=== PATIENT | male | born 1980 | race Caucasian/White ===

== ENCOUNTER 2017-08-09 08:01 | Outpatient (CLI) | payer BC ==
--- NOTE | 2017-08-09 11:07 | MRI ---
MRI LUMBAR SPINE WITHOUT IV CONTRAST: HISTORY: A 36-year-old male with low back pain and right leg pain, down to the right knee, for two months. TECHNIQUE: Multiplanar, multisequence MRI examination of the lumbar spine is performed. FINDINGS: There is some evidence for Schmorl's nodes at L1-L2 and at L2-L3, with some disk desiccation changes and some disk space narrowing, without evidence for focal disk osteophytosis or canal or foraminal st enosis. L3-L4: No central canal or foraminal stenosis. L4-L5: Very mild ventral lateral recess narrowing without significant stenosis. L5-S1: Broad-based central protrusion with some moderate thecal sac compression and mild to moderate central canal and bilateral recess stenosis and bilateral foraminal stenosis. There incidental note of bilateral os acetabulae involving both right and left acetabular regions. On the sagittal T2 sequence, the space between the posterior rectum and S4 measures approximately 0.8 c m, and the space between the posterior rectum and the sacrococcygeal junction region measures approxi mately 0.3 cm. There are some dilated veins in the presacral space. IMPRESSION: Broad-based protrusion changes at L5-S1 with some moderate canal, lateral recess, and foraminal steno sis. Incidental bilateral os acetabulae. Some Schmorl's nodes, disk desiccation changes, and disk s pace narrowing at L1-L2 and L2-L3, without significant canal or foraminal stenosis. POS: LM
== END 2017-08-09 08:02 | disposition home or self-care (01) ==
LOC: SCSMRI 08:01
PROVIDERS: ATTEND Orthopaedic Surgery
DX: M54.16 Radiculopathy, lumbar region (principal); M54.5 Low back pain; M48.07 Spinal stenosis, lumbosacral region; M51.46 Schmorl's nodes, lumbar region; M24.7 Protrusio acetabuli
CPT/HCPCS: 72148

== ENCOUNTER 2017-09-13 16:14 | Outpatient (CLI) | payer OTHER ==
[2017-09-13 17:05] LABS: Hemoglobin 15.2 g/dL (14.0-18.0); Mean Corpuscular HGB CONC 34.4 g/dL (32.0-36.0); Mean Corpuscular Hemoglobin 30.1 pg (27.0-31.0); Mean Corpuscular Volume 87.5 fl (80.0-94.0); Platelet Count 290 thou/uL (130-400); RBC Distribution Width 12.1 % (11.5-14.5); Red Blood Cell (RBC) Count 5.05 mill/uL (4.70-6.10); White Blood Cell (WBC) Count 13.8 thou/uL (4.8-10.8)
[2017-09-13 17:13] LABS: INR-International Normal Ratio 1.1; PTT 27.6 SEC (22.9-36.1); Prothrombin Time 14.1 SEC (12.0-14.7)
[2017-09-13 17:21] LABS: Anion Gap 12 mmol/L (10-20); BUN (Urea Nitrogen) 13 mg/dL (8.9-20.6); Calc. Creatinine Clearance 0 mL/min (70-130); Calcium 9.8 mg/dL (7.8-10.44); Carbon Dioxide 27 mmol/L (22-29); Chloride 104 mmol/L (98-107); Estimated GFR-MDRD Greater than 90; Glucose 80 mg/dL (70-105); Potassium 4.3 mmol/L (3.5-5.1); Sodium 139 mmol/L (136-145)
== END 2017-09-13 16:15 | disposition home or self-care (01) ==
LOC: LABBT 16:14
PROVIDERS: ATTEND Orthopaedic Surgery
DX: Z01.818 Encounter for other preprocedural examination (principal); M54.17 Radiculopathy, lumbosacral region; M54.5 Low back pain
CPT/HCPCS: 80048; 85027; 85610; 85730; 86850; 86900; 86901

== ENCOUNTER 2017-09-16 10:34 | Observation (INO) | payer OTHER ==
[2017-09-16] MEDS ORDERED: CEFAZOLIN/Water 2 GM/20 ML SYRINGE ONE (11:07)
[2017-09-16] MEDS ORDERED: Famotidine/PF 20 mg/2ml Vial ONE (11:08)
[2017-09-16] MEDS ORDERED: Midazolam HCl 2 mg/2 ml Vial ONE (12:27)
[2017-09-16] MEDS ORDERED: Ketamine 50 MG/ML VIAL ONE (12:43)
[2017-09-16] MEDS ORDERED: Propofol 1,000 MG/100 ML VIAL IV ONE (12:43)
[2017-09-16] MEDS ORDERED: Sodium Chloride 0.9% 10 ML ONE (12:54)
[2017-09-16] MEDS ORDERED: Thrombin 5000 UNITS/5 ML VIAL ONE (12:54)
[2017-09-16] MEDS ORDERED: Neomycin-Polymyxin 1 ML AMP ONE (12:54)
[2017-09-16] MEDS ORDERED: Bupivacaine PF 0.5% 30 ML VIAL ONE (12:54)
[2017-09-16] MEDS ORDERED: Fentanyl 100 MCG/2 ML VIAL ONE ×2 (13:00→13:50)
[2017-09-16] MEDS ORDERED: Lidocaine 1% w/Epinephrine 1:200K 30 ML VIAL ONE (14:10)
[2017-09-16] MEDS ORDERED: Propofol 500 MG/50 ML VIAL ONE ×2 (14:43→15:37)
[2017-09-16] MEDS ORDERED: HYDROmorphone 0.5 MG/0.5 ML SYRINGE ONE ×3 (15:14→16:06)
[2017-09-16] MEDS ORDERED: Dexamethasone 20 MG/5 ML VIAL ONE (15:29)
[2017-09-16] MEDS ORDERED: Ketorolac Tromethamine 30 MG/ML VIAL ONE (15:29)
[2017-09-16] MEDS ORDERED: Succinylcholine Chloride 20 MG/ML 10 ml SYRINGE FS ONE (15:29)
[2017-09-16] MEDS ORDERED: Lidocaine 1% PF 5 ML VIAL ONE (15:29)
[2017-09-16] MEDS ORDERED: Propofol 200 MG/20 ML VIAL ONE (15:29)
[2017-09-16] MEDS ORDERED: Ondansetron HCl/PF 4 MG/2 ML Vial ONE ×2 (15:29→20:52)
[2017-09-16] MEDS ORDERED: HYDROmorphone 2 MG/ML VIAL SLOW IVP PRN (19:25)
[2017-09-16] MEDS ORDERED: Ondansetron HCl/PF 4 MG/2 ML Vial IVP PRN (19:25)
[2017-09-16] MEDS ORDERED: Promethazine HCl 25 MG/ML VIAL IM PRN ×2 (19:25→19:27)
[2017-09-16] MEDS ORDERED: Promethazine HCl 25 MG/ML VIAL SLOW IVP PRN (19:25)
[2017-09-16] MEDS ORDERED: Ondansetron HCl/PF 4 MG/2 ML Vial IV PRN (19:27)
[2017-09-16] MEDS ORDERED: Morphine 4 MG/ML Carpuject IVP PRN (19:27)
[2017-09-16] MEDS ORDERED: PHARMACY TO RENALLY ADJUST ABX FS SCH (19:30)
[2017-09-16] MEDS ORDERED: TETANUS AND DIPHTHERIA TOX/PF 0.5 ML DISP.SYRIN IM SCH (19:30)
[2017-09-16] MEDS ORDERED: CEFAZOLIN/Water 2 GM/20 ML SYRINGE SLOW IVP SCH ×2 (20:00→22:15)
[2017-09-16] MEDS ORDERED: Promethazine HCl 25 MG/ML VIAL ONE (21:05)
[2017-09-16] MEDS ORDERED: diphenhydrAMINE 50 MG CAP PO PRN (22:09)
[2017-09-16] MEDS ORDERED: HYDROcodone/Acetaminophen 10/325 mg Tablet PO PRN (22:10)
[2017-09-16] MEDS ORDERED: Acetaminophen 325 MG TAB PO PRN (22:11)
[2017-09-16 22:31] VITALS: BMI 28.7
[2017-09-16] MEDS ORDERED: Morphine 5 MG/ML SYRINGE IVP PRN (23:32)
[2017-09-17] MEDS: traMADol HCl 50 MG TAB PO PRN (03:18)
[2017-09-17] MEDS: CEFAZOLIN/Water 2 GM/20 ML SYRINGE SLOW IVP SCH ×2 (06:08→15:21)
[2017-09-17] MEDS: HYDROcodone/Acetaminophen 10/325 mg Tablet PO PRN ×3 (08:38→21:45)
[2017-09-17] MEDS ORDERED: FLU VACC QS2017-18 36 mo. & older 0.5 ML SYRINGE IM ONE (09:00)
[2017-09-17] MEDS: Cyclobenzaprine 10 MG TAB PO PRN ×2 (15:20→23:45)
--- NOTE | 2017-09-17 21:54 | PRG ---
POSTOPERATIVE DAY #1 NOTE: 09/17/2017 Mr. Kelley had surgery yesterday evening. It was an L5-S1 decompression bilaterally followed by L5- S1 fusion. After the surgery, he had a lot of muscle spasm. Today, he was able to stand up to urina te. Otherwise, he has been mostly in the bed. He has had a lot of muscle spasm. There has been uri e attempts at using his lumbar corset, but he still has too much muscle spasm. I checked his dressing. It was clean and dry. He has good strength in ankle and toe dorsiflexion an d plantar flexion. ASSESSMENT AND PLAN: Mr. Kelley has a lot of muscle spasm from his surgery yesterday. I will add F lexeril 10 mg p.o. t.i.d. to his regimen and I have also requested a physical therapy consultation. I will extend his status until tomorrow because of pain management and requiring pain medication. Ho pefully, he will be able to be discharged tomorrow.
[2017-09-18] MEDS: Cyclobenzaprine 10 MG TAB PO PRN ×2 (12:19→20:51)
[2017-09-18] MEDS: HYDROcodone/Acetaminophen 10/325 mg Tablet PO PRN (12:55)
[2017-09-18] MEDS: Acetaminophen/Codeine 30-300mg Tablet PO PRN (18:53)
--- NOTE | 2017-09-19 01:48 | DIS ---
POSTOPERATIVE DAY #2 VISIT NOTE AND DISCHARGE SUMMARY I saw Mr. Kelley today. He is able to get out of bed today. He walked down the lawler with assistanc e. He is using oral pain medications and muscle relaxers. The muscle relaxers seem to have helped a lot. He has full strength in lower extremities. He has no sensory changes. His incisions are nice and clean. Mr. Kelley will follow up with me in the office. His prescriptions have already been called in and his postop visit has already been scheduled. He is to be discharged with a walker and arrangements h ave already been made. Wound care instructions have already been done in the office.
[2017-09-19] MEDS: traMADol HCl 50 MG TAB PO PRN (02:11)
[2017-09-19] MEDS: Acetaminophen/Codeine 30-300mg Tablet PO PRN ×2 (04:32→10:19)
--- NOTE | 2017-09-19 05:56 | DIS ---
CHIEF COMPLAINT: Severe low back pain and leg pain. HISTORY OF PRESENT ILLNESS: Mr. Kelley is a 36-year-old gentleman who has been having low back pain and leg pain for years with epidural steroid injections given numerous times. He was found to have both foraminal stenosis and lateral recess stenosis. He had back pain and leg pain bilaterally. Mr. Kelley underwent an L5-S1 decompression bilaterally in the lateral recesses as well as separate incisions for minimally invasive pedicle screw fixation at L5-S1. He did very well with surgery and then was transferred to the recovery room and then the floor. He had some pain issues for which he t ook IV pain medications and muscle relaxers. On postop day #1, he was feeling a little bit better. Postop day #2, today, he was feeling a lot better. He feels that he will be ready for discharge in t he morning. He has already been set up for his initial postop visit, prescriptions have already been called in, and his walker has already been arranged. I will see him in the office next week.
[2017-09-19 08:37] VITALS: TEMP 98
[2017-09-19] MEDS: Cyclobenzaprine 10 MG TAB PO PRN (08:38)
[2017-09-19 09:58] VITALS: BP 117/69
--- NOTE | 2017-10-10 20:27 | DIS ---
CHIEF COMPLAINT: Severe low back pain and radiating bilateral leg pain. HISTORY OF PRESENT ILLNESS: Mr. Kelley is a gentleman who has had significant low back pain and rad iating leg pain with significant lateral recess stenosis, as well as far lateral stenosis. This was not able to be decompressed alone, but needed stabilization since the foraminal stenosis was a signif icant part of the problem. HOSPITAL COURSE: Mr. Kelley underwent an L5-S1 bilateral microsurgical decompression in the midline , as well as posterior spinal fusion with stabilization at L5-S1. He did well with the surgery and w as transferred to the recovery room and then to the regular floor. After the surgery, he had some pa in issues and was kept in the hospital for IV pain medication for the first 48 hours. He was then de emed to be stable on oral pain medications and then finally discharged. He was discharged in an ambu latory status and was taking oral pain medications. He was neurologically intact throughout his enti re convalescence. I will see Mr. Kelley back in the office on the bases consistent with his surgery.
== END 2017-09-19 11:15 | disposition home or self-care (01) ==
LOC: SDC 10:34 → OBSVTOIN 19:27 → SURG A 19:27 → INTOOBSV 19:27
PROVIDERS: ADMIT Orthopaedic Surgery; ATTEND Orthopaedic Surgery
PROC: 0SG3071 Fusion of Lumbosacral Joint with Autologous Tissue Substitute, Posterior Approach, Posterior Column, Open Approach (ICD-10-PCS; principal; 2017-09-19)
DX: M48.07 Spinal stenosis, lumbosacral region (principal); M54.17 Radiculopathy, lumbosacral region; E66.9 Obesity, unspecified; Z68.28 Body mass index [BMI] 28.0-28.9, adult; Z88.0 Allergy status to penicillin; Z98.818 Other dental procedure status
CPT/HCPCS: 76001; 80048; 85027; 85610; 85730; 86850; 86900; 86901; 96374; 96375; 96376; J2270; A4216; C1713; C1768; G0378; G8978-GP-CM; G8979-GP-CJ; J0131; J1100; J1170; J1885; J2001; J2250; J2405; J2550; J2704; J3010; J3490; S0020; S0028

== ENCOUNTER 2018-06-24 06:45 | Day surgery (SDC) | payer OTHER ==
[2018-06-23 11:39] VITALS: BMI 30.4
[2018-06-24 08:04] VITALS: BP 119/77; TEMP 97.4
[2018-06-24] MEDS ORDERED: Acetaminophen 500 MG TAB ONE (08:36)
--- NOTE | 2018-06-24 09:55 | RAD ---
LUMBAR MYELOGRAM: HISTORY: Low back pain. Previous lumbar fusion. EXPOSURE: 0.8 minutes. 207.5 mGy*^m2. FINDINGS: Two views lumbar spine park worker radiograph demonstrate 5 lumbar-type vertebral bodies. Vertebral body h eight is maintained. No fracture. Straightening of normal lumbar lordosis. Bilateral transpedicula r screws at L5 and S1. No perihardware lucency. Successful lumbar puncture. Total of 10 cc of Isovue-M 200 contrast was administered intrathecally. No immediate or postprocedure complication. TECHNIQUE: Consent was obtained to perform a lumbar puncture for lumbar myelogram. The patient's back was evalu ated. The L2-L3 level was deemed appropriate. The skin was prepped and draped in sterile fashion. 1% Lidocaine, buffered with sodium bicarbonate, was used for local anesthesia. Under fluoroscopic gu idance, a 22 gauge spinal needle was advanced to the CSF space. The inner stylette was removed. Pro mpt flow of clear CSF into the hub of the needle. Via a short tubing catheter, a total of 10 cc of I sovue-M 200 contrast was administered intrathecally. The patient tolerated the procedure well. No i mmediate or postprocedure complication. IMPRESSION: Successful lumbar myelogram. Please refer to post myelogram CT for further details. POS: LM
--- NOTE | 2018-06-24 10:17 | CT ---
POST MYELOGRAM LUMBAR SPINE CT: History: Low back pain. Lumbar fusion. Comparison: None. FINDINGS: There is straightening of the normal lumbar lordosis. Lumbar spine vertebral body height is maintaine d. No fracture. No spondylolithsis or spondylosis. Schmorl's nodes along the inferior endplate of L1 and L2 are noted. With regard to the bilateral transpedicular screws at L5 and S1, no perihardware lucency. Conus medullaris terminates at the T12-L1 disc space level. Retroperitoneal structures are unremarkable. T12-12, T12-L1: No significant central canal stenosis or neural foraminal narrowing. L1-2: Mild loss of disc space height. No significant central canal stenosis or neural foraminal narro wing. L2-3: Mild loss of disc space height. No significant central canal stenosis or neural foraminal narro wing. L3-4: No significant posterior disc abnormality. Disc space height is preserved. No significant centr al canal stenosis, neural foraminal narrowing. L4-5: Disc space height is preserved. Minimal generalized disc bulge, ligamentum flavum thickening, a nd facet hypertrophy result in mild central canal stenosis. Mild bilateral foraminal narrowing. L5-S1: Disc space height is preserved. No significant central canal stenosis. Moderate bilateral neur al foraminal narrowing. Note, bilateral S1 screws extend slightly beyond the anterior margin of the S1 vertebral body. IMPRESSION: 1. No high grade central canal stenosis. 2. Moderate bilateral foraminal narrowing at L5-S1. 3. Bilateral transpedicular screws at L5-S1 without perihardware lucency. POS: [facility]
[2018-06-24] MEDS ORDERED: Iopamidol-M 200 41% 20 ML VIAL ONE (13:29)
== END 2018-06-24 09:15 | disposition home or self-care (01) ==
LOC: RAD 06:45
PROVIDERS: ATTEND Neurological Surgery
DX: M48.07 Spinal stenosis, lumbosacral region (principal)
CPT/HCPCS: 62304; 72132

== ENCOUNTER 2024-06-02 08:16 | Outpatient (CLI) | payer BC | END 2024-06-02 08:17 | disposition home or self-care (01) | LOC: BICRAD 08:16 | DX: J18.9 Pneumonia, unspecified organism (principal) | CPT/HCPCS: 71046 ==

== ENCOUNTER 2024-12-03 12:25 | Outpatient (CLI) | payer BC | END 2024-12-03 12:26 | disposition home or self-care (01) | LOC: BICMRI 12:25 | PROVIDERS: ATTEND Family Medicine | DX: R51.9 Headache, unspecified (principal) | CPT/HCPCS: 70553 ==